=== PATIENT | female | born 1985 | race Caucasian/White ===

== ENCOUNTER → 2017-01-09 | Outpatient (CLI) | payer BC ==
[~2017-01-09] MED LIST: ACET-62 PO; PREN1TAB73 PO
[2017-01-09 15:24] LABS: HCT - HEMATOCRIT 45.8 % (36-46); HGB - HEMOGLOBIN 15.7 GM/DL (12-16); MEAN CORPUSCULAR HGB 29.2 UUG (26-34); MEAN CORPUSCULAR HGB CONC(MCHC 34.3 GM/DL (31-37); MEAN CORPUSCULAR VOLUME 85.1 UM3 (80-100); MEAN PLATELET VOLUME 10.1 UM3 (9.4-12.4); RED BLOOD COUNT 5.38 M/MM3 (4.00-5.20); WBC - WHITE BLOOD COUNT 10.5 T/MM3 (4.5-11.0)
[2017-01-09 15:37] LABS: BAND NEUTROPHILS # 1.1 T/MM3; BASOPHILS # (MANUAL) 0.1 T/MM3 (0-0.2); LYMPHOCYTES # (MANUAL) 0.7 T/MM3 (1-4.8); MONOCYTES # (MANUAL) 0.5 T/MM3 (0-0.8); NEUTROPHILS #(MANUAL)-ABSOLUTE 8.1 T/MM3 (1.8-7.7); TOTAL CELLS COUNTED 100 %
--- NOTE | 2017-01-09 15:46 | DI ---
Indication: Cough for a few weeks and fever for one day Procedure: CHEST, PA LATERAL: Encounter: Initial Comparison: None Technique: PA and lateral radiographs of the chest were obtained Findings: Lungs and airways: Normal lung volumes. No focal airspace consolidation. Normal pulmonary vasculature. Pleura: No pleural effusion or pneumothorax. Heart and mediastinum: The cardiomediastinal silhouette and great vessels are within normal limits. Osseous structures and soft tissues: No acute osseous abnormality is seen. Impression: No acute cardiopulmonary process. .
== END ==
LOC: IMA 15:06
PROVIDERS: ATTEND Family Medicine
DX: R05 Cough (principal); R50.9 Fever, unspecified
CPT/HCPCS: 36415; 85025